=== PATIENT | female | born 2000 | race Caucasian/White ===

== ENCOUNTER 2021-03-30 09:51 | Inpatient (IN) ==
--- NOTE | 2021-03-30 11:28 | Emergency Department Note ---
Impression & Plan Mood disorder ED Provider Note INFORMANT: Patient ED PROVIDER(S): Jose Callahan MD CHIEF COMPLAINT: Depression PLAN: Disposition: Admitted Condition: Good Outpatient prescription management: none Referral: None MEDICAL DECISION MAKING: Patient presented with complaints of depression and by history was severely depressed. Her physical examination did not reveal any concerning medical pathology. Laboratory testing was unremarkable. Patient was evaluated by the ER psychiatric rn case management. Consultation was placed with [address] [facility]. The patient was evaluated in the ER. She was accepted for voluntary admission. Triage Nursing notes reviewed and agree them. Vital Signs: reviewed and remarkable for no significant abnormalities Differential diagnosis: Mood disorder, infection, hypoglycemia, electrolyte abnormalities, cardiac sources, intracerebral event, toxicologic, trauma, neurologic, as well as other pathologies. Diagnostics interpreted by me: ECG: none Cardiac Monitoring: none Imaging studies: Deferred HPI: The patient is a 21 year old female who presents to the Emergency Room with complaints of depression. This started a few months ago and is worsening over the last few weeks. The patient also notes the following associated symptoms, feeling depressed, anxious, poor sleep, lack of appetite, no energy, no concentration. Patient also notes vague thoughts of SI but denies any HI. No plan. The patient has relieving factors. Current pain is rated as 0/10. Patient denies any recent illness. She notes stressor is from 2 recent miscarriages. Pt denies LOC, headache, fevers, chills, diaphoresis, visual changes, neck pain, chest pain, breathing difficulties, nausea, vomiting, abdominal pain, back pain, melena, hematochezia, urinary symptoms, numbness, weakness, lymphadenopathy, rash, or other complaints. ROS: See above HPI for pertinent positives & negatives. A total of 10 systems reviewed and were otherwise negative. 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 Oropharynx unremarkable. EYES: Normal conjunctiva. Sclera non-icteric. Pupils equal and round. EOMI. NECK: Inspection normal. Non-tender. Supple. No nuchal rigidity. FROM. No masses. RESPIRATORY: Clear to auscultation. No wheezes. No rales. Normal respiratory effort. CARDIAC: Normal rate. Normal rhythm. No murmurs. No rubs. Extremities warm and well perfused. Pulses equal. No JVD. GI: Soft, non-distended. No tenderness to palpation. No rebound or guarding. No masses. RECTAL: Deferred. MUSCULOSKELETAL: Atraumatic. Chest examination reveals no tenderness. The back is symmetrical on inspection without obvious abnormality. There is no CVA tenderness to palpation. No joint edema. LOWER EXTREMITIES: Calves are equal size bilaterally and non-tender. No edema. No discoloration. NEURO: Normal sensorium. No sensory or motor deficits noted. Cranial nerves II through XII intact. No drift. SKIN: No rash or jaundice noted. PSYCH: Vague SI, no HI, depressed mood and flat affect. Jose Callahan MD Past Med/Surg History Medical History Concussion Surgical History History of cholecystectomy 2019 Family History Other No significant family history Social History Smoking Status: Never smoker Preferred Language: Estonian Communication Ability: Effective Storeroom Attendant Required: No Beliefs That Will Affect Care: None marital status: Single Feels Safe at Home: Yes Assistive Devices: None Allergies Allergies Allergy/AdvReac Type Severity Reaction Status Date / Time Pork/Porcine Containing Allergy Intermediate Anaphylaxis Unverified 03/30/21 17:24 Products Beef Containing Products Allergy Anaphylaxis Unverified 03/30/21 17:23 No Known Drug Allergies Allergy . Verified 03/30/21 12:27 Home Meds Home Medications Medication Instructions Recorded Confirmed levonorgestrel 0.15 mg-ethinyl 1 tab PO DAILY 03/30/21 03/30/21 estradiol 0.03 mg tablet (Altavera (28)) Results & Data (ED) Vital Signs Vital Signs - 24 hr 03/30/21 10:09 03/30/21 12:35 Temperature 36.9 C Temperature Source Oral Pulse Rate 97 H Pulse Rate [Finger] 85 Respiratory Rate 17 18 Blood Pressure 162/96 H Blood Pressure [Right Arm] 136/81 Blood Pressure Mean 118 Blood Pressure Mean [Right Arm] 99 Pulse Oximetry 97 99 Oxygen Delivery Method Room Air Room Air Sepsis Recent Fever Within 48 Hours No Sepsis New/Unexplained Change in Mental Status N/A Sepsis Action Taken by Nursing No Action Required Laboratory Data Result diagrams: 03/30/21 11:40 03/30/21 11:40 Lab Results 03/30/21 03/30/21 03/30/21 Range/Units 11:40 11:40 11:40 WBC 6.95 (4.8-10.8) K/uL RBC 4.65 (4.2-5.4) M/uL Hgb 14.3 (12.0-16.0) g/dL Hct 41.9 (37-47) % MCV 90.1 (80-100) fL MCH 30.8 (25-34) pg MCHC 34.1 (32-36) g/dL RDW Std Deviation 45.0 (36.4-46.3) fL RDW Coeff of Elizabeth 13.6 (11.5-14.5) % Plt Count 360 (130-400) K/uL MPV 10.6 H (7.4-10.4) fL Immature Gran % (Auto) 0.1 % Neut % (Auto) 70.8 % Lymph % (Auto) 21.0 % [place] % (Auto) 7.2 % Eos % (Auto) 0.6 % Baso % (Auto) 0.3 % Neut # (Auto) 4.92 (1.4-6.5) K/uL Lymph # (Auto) 1.46 (1.2-3.4) K/uL [place] # (Auto) 0.50 (0.11-0.59) K/uL Eos # (Auto) 0.04 (0-0.5) K/uL Baso # (Auto) 0.02 (0-0.2) K/uL Immature Gran # (Auto) 0.01 (0.00-0.02) K/uL Sodium 139 (136-145) mmol/L Potassium 3.8 (3.5-5.1) mmol/L Chloride 107 (98-107) mmol/L Carbon Dioxide 25 (21-32) mmol/L Anion Gap 6.0 (3-11) BUN 11 (7-18) mg/dl Creatinine 0.81 (0.6-1.2) mg/dl Est Cr Clr Drug Dosing 122.1 ml/min Est GFR ( Amer) 120.3 ml/min Est GFR (Non-Af Amer) 103.8 ml/min BUN/Creatinine Ratio 12.9 (10-20) Glucose 102 H (70-99) mg/dl Calcium 9.1 (8.5-10.1) mg/dl Total Bilirubin 0.5 (0.2-1) mg/dl AST 14 L (15-37) U/L ALT 21 (12-78) U/L Alkaline Phosphatase 77 (45-117) U/L Total Protein 8.6 H (6.4-8.2) gm/dl Albumin 4.3 (3.4-5.0) gm/dl Globulin 4.3 H (2.5-4.0) gm/dl Albumin/Globulin Ratio 1.0 (0.9-2) TSH 1.070 (0.300-4.500) uIu/ml Urine Color Urine Appearance (Clear) Urine pH (4.5-7.5) Ur Specific [place] (1.000-1.030) Urine Protein (Negative) Urine Glucose (UA) (Negative) Urine Ketones (Negative) Urine Blood (Negative) Urine Nitrite (Negative) Urine Bilirubin (Negative) Urine Urobilinogen (Negative) Ur Leukocyte Esterase (Negative) Urine WBC (Auto) (0-5) /hpf Urine RBC (Auto) (0-4) /hpf U Hyaline Cast (Auto) (0-5) /lpf U Epithel Cells (Auto) (0-5) /lpf Urine Bacteria (Auto) (Negative) POC Ur Test (NEG) Salicylates < 1.7 L (2.8-20) mg/dl Urine Opiates Screen (Neg) Ur Methadone, Qual (Neg) Acetaminophen < 2 L (10-30) ug/ml Urine Barbiturates (Neg) Ur Phencyclidine (PCP) (Neg) U Amphetamin/Meth Scrn (Neg) MDMA (Ecstasy) Screen (Neg) U Benzodiazepines Scrn (Neg) Ur Cocaine Metabolite (Neg) U Marijuana (THC) Screen (Neg) Ethyl Alcohol mg/dL (0-3) mg/dl COVID-19 Eval Order SARS-CoV-2, RNA, NAAT (NEGATIVE) 03/30/21 03/30/21 03/30/21 Range/Units 11:40 11:50 11:50 WBC (4.8-10.8) K/uL RBC (4.2-5.4) M/uL Hgb (12.0-16.0) g/dL Hct (37-47) % MCV (80-100) fL MCH (25-34) pg MCHC (32-36) g/dL RDW Std Deviation (36.4-46.3) fL RDW Coeff of Elizabeth (11.5-14.5) % Plt Count (130-400) K/uL MPV (7.4-10.4) fL Immature Gran % (Auto) % Neut % (Auto) % Lymph % (Auto) % [place] % (Auto) % Eos % (Auto) % Baso % (Auto) % Neut # (Auto) (1.4-6.5) K/uL Lymph # (Auto) (1.2-3.4) K/uL [place] # (Auto) (0.11-0.59) K/uL Eos # (Auto) (0-0.5) K/uL Baso # (Auto) (0-0.2) K/uL Immature Gran # (Auto) (0.00-0.02) K/uL Sodium (136-145) mmol/L Potassium (3.5-5.1) mmol/L Chloride (98-107) mmol/L Carbon Dioxide (21-32) mmol/L Anion Gap (3-11) BUN (7-18) mg/dl Creatinine (0.6-1.2) mg/dl Est Cr Clr Drug Dosing ml/min Est GFR ( Amer) ml/min Est GFR (Non-Af Amer) ml/min BUN/Creatinine Ratio (10-20) Glucose (70-99) mg/dl Calcium (8.5-10.1) mg/dl Total Bilirubin (0.2-1) mg/dl AST (15-37) U/L ALT (12-78) U/L Alkaline Phosphatase (45-117) U/L Total Protein (6.4-8.2) gm/dl Albumin (3.4-5.0) gm/dl Globulin (2.5-4.0) gm/dl Albumin/Globulin Ratio (0.9-2) TSH (0.300-4.500) uIu/ml Urine Color Urine Appearance (Clear) Urine pH (4.5-7.5) Ur Specific [place] (1.000-1.030) Urine Protein (Negative) Urine Glucose (UA) (Negative) Urine Ketones (Negative) Urine Blood (Negative) Urine Nitrite (Negative) Urine Bilirubin (Negative) Urine Urobilinogen (Negative) Ur Leukocyte Esterase (Negative) Urine WBC (Auto) (0-5) /hpf Urine RBC (Auto) (0-4) /hpf U Hyaline Cast (Auto) (0-5) /lpf U Epithel Cells (Auto) (0-5) /lpf Urine Bacteria (Auto) (Negative) POC Ur Test (NEG) Salicylates (2.8-20) mg/dl Urine Opiates Screen (Neg) Ur Methadone, Qual (Neg) Acetaminophen (10-30) ug/ml Urine Barbiturates (Neg) Ur Phencyclidine (PCP) (Neg) U Amphetamin/Meth Scrn (Neg) MDMA (Ecstasy) Screen (Neg) U Benzodiazepines Scrn (Neg) Ur Cocaine Metabolite (Neg) U Marijuana (THC) Screen (Neg) Ethyl Alcohol mg/dL < 3.0 (0-3) mg/dl COVID-19 Eval Order Covid19 IDNow at[facility] SARS-CoV-2, RNA, NAAT NEGATIVE (NEGATIVE) 03/30/21 03/30/21 03/30/21 Range/Units 12:06 12:06 12:26 WBC (4.8-10.8) K/uL RBC (4.2-5.4) M/uL Hgb (12.0-16.0) g/dL Hct (37-47) % MCV (80-100) fL MCH (25-34) pg MCHC (32-36) g/dL RDW Std Deviation (36.4-46.3) fL RDW Coeff of Elizabeth (11.5-14.5) % Plt Count (130-400) K/uL MPV (7.4-10.4) fL Immature Gran % (Auto) % Neut % (Auto) % Lymph % (Auto) % [place] % (Auto) % Eos % (Auto) % Baso % (Auto) % Neut # (Auto) (1.4-6.5) K/uL Lymph # (Auto) (1.2-3.4) K/uL [place] # (Auto) (0.11-0.59) K/uL Eos # (Auto) (0-0.5) K/uL Baso # (Auto) (0-0.2) K/uL Immature Gran # (Auto) (0.00-0.02) K/uL Sodium (136-145) mmol/L Potassium (3.5-5.1) mmol/L Chloride (98-107) mmol/L Carbon Dioxide (21-32) mmol/L Anion Gap (3-11) BUN (7-18) mg/dl Creatinine (0.6-1.2) mg/dl Est Cr Clr Drug Dosing ml/min Est GFR ( Amer) ml/min Est GFR (Non-Af Amer) ml/min BUN/Creatinine Ratio (10-20) Glucose (70-99) mg/dl Calcium (8.5-10.1) mg/dl Total Bilirubin (0.2-1) mg/dl AST (15-37) U/L ALT (12-78) U/L Alkaline Phosphatase (45-117) U/L Total Protein (6.4-8.2) gm/dl Albumin (3.4-5.0) gm/dl Globulin (2.5-4.0) gm/dl Albumin/Globulin Ratio (0.9-2) TSH (0.300-4.500) uIu/ml Urine Color Dark Yellow Urine Appearance Cloudy A (Clear) Urine pH 5.5 (4.5-7.5) Ur Specific [place] 1.035 H (1.000-1.030) Urine Protein Trace H (Negative) Urine Glucose (UA) Negative (Negative) Urine Ketones 3+ H (Negative) Urine Blood Negative (Negative) Urine Nitrite Negative (Negative) Urine Bilirubin 1+ H (Negative) Urine Urobilinogen Negative (Negative) Ur Leukocyte Esterase Negative (Negative) Urine WBC (Auto) 1-5 (0-5) /hpf Urine RBC (Auto) 0-4 (0-4) /hpf U Hyaline Cast (Auto) 1-5 (0-5) /lpf U Epithel Cells (Auto) >30 H (0-5) /lpf Urine Bacteria (Auto) Negative (Negative) POC Ur Test NEG (NEG) Salicylates (2.8-20) mg/dl Urine Opiates Screen Neg (Neg) Ur Methadone, Qual Neg (Neg) Acetaminophen (10-30) ug/ml Urine Barbiturates Neg (Neg) Ur Phencyclidine (PCP) Neg (Neg) U Amphetamin/Meth Scrn Neg (Neg) MDMA (Ecstasy) Screen Neg (Neg) U Benzodiazepines Scrn Neg (Neg) Ur Cocaine Metabolite Neg (Neg) U Marijuana (THC) Screen Neg (Neg) Ethyl Alcohol mg/dL (0-3) mg/dl COVID-19 Eval Order SARS-CoV-2, RNA, NAAT (NEGATIVE) Discharge Plan Visit Data Chief Complaint: Mental Health Evaluation Stated Complaint: UNABLE TO SLEEP FOR WEEK ED Provider: Jose Callahan Discharge Problem: Mood disorder Patient Disposition: Admitted As Inpatient Discharge Instructions Interventions: ED Discharge Assessment Last Done: 03/30/21 14:20
[2021-03-30 11:56] LABS: Basophils # (auto) 0.02 K/uL (0-0.2); Basophils % (auto) 0.3 %; Eosinophils # (auto) 0.04 K/uL (0-0.5); Eosinophils % (auto) 0.6 %; Hematocrit (blood only) 41.9 % (37-47); Hemoglobin 14.3 g/dL (12.0-16.0); Immature Granulocytes # (auto) 0.01 K/uL (0.00-0.02); Immature Granulocytes % (auto) 0.1 %; Lymphocytes # (auto) 1.46 K/uL (1.2-3.4); Mean Corpuscular Hemoglobin 30.8 pg (25-34); Mean Corpuscular Hgb Conc 34.1 g/dL (32-36); Mean Corpuscular Volume 90.1 fL (80-100); Mean Platelet Volume 10.6 fL (7.4-10.4); Monocytes % (auto) 7.2 %; Neutrophils # (auto) 4.92 K/uL (1.4-6.5); Neutrophils % (auto) 70.8 %; Platelet Count 360 K/uL (130-400); RDW Coefficient of Variation 13.6 % (11.5-14.5); Red Blood Count 4.65 M/uL (4.2-5.4); White Blood Count 6.95 K/uL (4.8-10.8)
[2021-03-30 12:19] LABS: Albumin Level 4.3 gm/dl (3.4-5.0); BUN Creatinine Ratio 12.9 (10-20); Calcium 9.1 mg/dl (8.5-10.1); Creatinine Clr Calc Pharmacy 122.1 ml/min; Est GFR (African American) 120.3 ml/min; Est GFR (Non-African American) 103.8 ml/min; Potassium 3.8 mmol/L (3.5-5.1)
[2021-03-30 12:20] LABS: Appearance Urine Cloudy (Clear); Bacteria Urine Automated Negative (Negative); Blood Urine Negative (Negative); Color Urine Dark Yellow; Epithelial Cell Urine Auto >30 /lpf (0-5); Glucose Urine UA Negative (Negative); Ketones Urine 3+ (Negative); Leukocyte Esterase Urine Negative (Negative); Nitrite Urine Negative (Negative); Protein Urine Trace (Negative); RBC Urine Automated 0-4 /hpf (0-4); Specific Gravity Urine 1.035 (1.000-1.030); Urobilinogen Urine Negative (Negative); pH Urine 5.5 (4.5-7.5)
[2021-03-30 12:21] LABS: Bilirubin Urine 1+ (Negative)
[2021-03-30 12:28] LABS: Acetaminophen < 2 ug/ml (10-30)
[2021-03-30 12:29] LABS: Bilirubin,Total 0.5 mg/dl (0.2-1); Globulin 4.3 gm/dl (2.5-4.0); Salicylate < 1.7 mg/dl (2.8-20); Thyroid Stimulating Hormone 1.07 uIu/ml (0.300-4.500); Total Protein 8.6 gm/dl (6.4-8.2)
[2021-03-30 12:43] LABS: Amphetamines+Metham, Urine Neg (Neg); Barbiturates, Urine Neg (Neg); Benzodiazepine, Urine Neg (Neg); Cocaine, Urine Neg (Neg); MDMA (Ecstacy), Urine Neg (Neg); Methadone, Urine Neg (Neg); Opiate, Urine Neg (Neg); Phencyclidine, Urine Neg (Neg)
[2021-03-30] MEDS ORDERED: hydrOXYzine HCl 25 MG TAB PO PRN ×2 (13:56)
[2021-03-30] MEDS ORDERED: BISMUTH SUBSALICYLATE LIQD 236 ML PO PRN (13:56)
[2021-03-30] MEDS ORDERED: SODIUM CHLORIDE 0.65% NA SOLN 45 ML (OCEAN) PRN (13:56)
[2021-03-30] MEDS ORDERED: ALUMINUM/MAGNESIUM SUSP 30 ML UDC PO PRN (13:56)
[2021-03-30] MEDS ORDERED: MAGNESIUM HYDROXIDE SUSP 30 ML UDC PO PRN (13:56)
[2021-03-30] MEDS ORDERED: ACETAMINOPHEN 325 MG TAB PO PRN (13:56)
--- NOTE | 2021-03-30 16:04 | History & Physical ---
Date of Service March 30, 2021 Impression / Recommendations Impression This is a 21-year-old female who presented to the emergency department with depression and suicidal ideation in the context of social stressors and recent loss. Patient will benefit from inpatient hospital stabilization for purposes of safety, stabilization and medication management. Currently on a 201 voluntary hospitalization. Working diagnosis at this time is major depressive disorder without psychotic features. Patient is agreeable to med changes to target the symptoms. We will start with a low-dose Lexapro combined with the benzodiazepine to aid with insomnia and initiation of SSRI. (1) Mood disorder: The patient was admitted to the [facility]) on every 15 minute checks (behavioral with suicide precautions for safety. The patient will participate in group, recreational, and milieu therapies and will be offered additional individual and family sessions as clinically appropriate. 03/30/2021atient will be prescribed 2 mg of lorazepam p.o. nightly, Lexapro 10 mg p.o. every morning Protective Factors Assessment Employed: No (Quit job yesterday due to depression) Psychiatric History Identifying Data VIRGINIA BRADSHAW is a 21-year-old F who currently lives in [place] alone, has no previous psychiatric history, and was admitted on 03/30/21 13:57 on a 201 voluntary commitment for depression with suicidal ideation. Chief Complaint "Mee been so out of sorts recently.". History of Present Illness As per psychiatric case management "Met with patient bedside along with friend, Tashi and Dr. Callahan to complete mental health evaluation. Patient presents sad, flat, tearful at times, but remains cooperative in answering all questions asked of her. Patient reports she has had two miscarriages this year, most recent in January. Patient got in September and was thinking about having an , but everyone was angry and upset about it. Patient then got again in December and had the same thoughts of having an , but then miscarried again. Patient reports worsening depression and difficulties sleeping especially over the past week. Patient reports she has been ignoring her feelings and believes it has all just caught up with me. Patient reports she is feeling very lonely. Patient admits to suicidal ideations, but has never developed a plan. Patient reports she has her first appointment a therapist, Nuzhat Blackman on Sunday. Patient denies being prescribed any psychotropic medications. Patient identifies stressors as recent break up with boyfriend of 1 year, unemployment, financial and health issues-2 miscarriages. Patient reports depressive symptoms as crying, feelings of helpless/hopelessness, lack of motivation and energy, loss of daily functioning, decrease concentration, appetite and sleep. Patient reports manic symptoms as racing thoughts and elevated/expansive mood. Patient describes anxiety as severe with symptoms of shortness, headaches, trembling, restlessness and palpitations. Patient denies any drug or tobacco use, admitting to one drink per night to help with sleep. 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 Patient is voluntary for treatment, prefers [facility]" Upon arrival to the unit patient endorsed the above information is accurate. She went on to dictate that it has been a lot of loss throughout her life including loss of her grandparents around puberty age, and more recently loss of job, loss of her unborn child, loss of boyfriend. She states that when thinking about that she is overwhelmed with racing thoughts and unable to sleep. She is agreeable to medication management to target the symptoms of depression and insomnia. Denies any substance abuse. Denies any legal trouble. Denies any manic or psychotic symptoms. Past Psychiatric History Current Psychiatric Diagnosis: Unknown Describe Attempts in the Past: Denies Allergies Allergy/AdvReac Type Severity Reaction Status Date / Time No Known Drug Allergies Allergy . Verified 03/30/21 12:27 Home Medications Medication Instructions Recorded Confirmed Type levonorgestrel 0.15 mg-ethinyl 1 tab PO DAILY 03/30/21 03/30/21 History estradiol 0.03 mg tablet (Altavera (28)) Family History Family History of: None Alcohol History Hx of Alcohol Use Over the Past 12 Months: Yes (One drink daily to help with sleep) Smoking Use Smoking Status: Never smoker Substance History Hx of Prescription Med Misuse Over the Past 12 Months: No Hx of Over the Counter Med Misuse Over the Past 12 Months: No Hx of Inhalent Misuse Over the Past 12 Months: No Hx of Organic Substance Use Over the Past 12 Months: No Hx of Illegal Substances/Street Drug Use Over Past 12 Months: No Problems as a Result of Past Substance Use: None Identified Personal History Living Arrangements: Apartment Patient History Medical History Concussion Surgical History History of cholecystectomy 2019 Family History Other No significant family history Social History Smoking Status: Never smoker Preferred Language: Italian marital status: Single Feels Safe at Home: Yes Review of Systems Review of Systems: All systems reviewed & are unremarkable except as noted in HPI & below Physical Exam Psychiatric: Orientation: alert and oriented x 3 Apperance: appropriately dressed and appropriately groomed Eye Contact: good eye contact Motor Behavior: no abnormal motor movements Speech: normal rate/rhythm/volume of speech Affect: + depressed affect, + anxious affect and + tearful affect Mood: + depressed mood, + anxious mood and + dysphoric mood Thought Process: linear/logical thought process Thought Content: + preoccupation, + cognitive distortions, + hopelessness, + worthlessness, + guilt and + self deprecation Suicidal Thoughts: denies suicidal plan; + reports suicidal thoughts Homicidal Thoughts: denies homicidal thoughts and denies homicidal plan Hallucinations: no auditory hallucinations and no visual hallucinations Cognition: recent memory grossly intact Estimated Intelligence: consistent with education level Insight: + fair insight Judgement: + impaired judgement Vital Signs (Past 24 Hours): Last Vital Signs Temp 36.9 C 03/30/21 10:09 Pulse 85 03/30/21 12:35 Resp 18 03/30/21 12:35 BP 136/81 03/30/21 12:35 Pulse Ox 99 03/30/21 12:35 Results & Data ([facility]) Laboratory Results Laboratory Results - last 24 hr 03/30/21 03/30/21 03/30/21 11:40 11:40 11:40 WBC 6.95 RBC 4.65 Hgb 14.3 Hct 41.9 MCV 90.1 MCH 30.8 MCHC 34.1 RDW Std Deviation 45.0 RDW Coeff of Elizabeth 13.6 Plt Count 360 MPV 10.6 H Immature Gran % (Auto) 0.1 Neut % (Auto) 70.8 Lymph % (Auto) 21.0 [place] % (Auto) 7.2 Eos % (Auto) 0.6 Baso % (Auto) 0.3 Neut # (Auto) 4.92 Lymph # (Auto) 1.46 [place] # (Auto) 0.50 Eos # (Auto) 0.04 Baso # (Auto) 0.02 Immature Gran # (Auto) 0.01 Sodium 139 Potassium 3.8 Chloride 107 Carbon Dioxide 25 Anion Gap 6.0 BUN 11 Creatinine 0.81 Est Cr Clr Drug Dosing 122.1 Est GFR ( Amer) 120.3 Est GFR (Non-Af Amer) 103.8 BUN/Creatinine Ratio 12.9 Glucose 102 H Calcium 9.1 Total Bilirubin 0.5 AST 14 L ALT 21 Alkaline Phosphatase 77 Total Protein 8.6 H Albumin 4.3 Globulin 4.3 H Albumin/Globulin Ratio 1.0 TSH 1.070 Urine Color Urine Appearance Urine pH Ur Specific [place] Urine Protein Urine Glucose (UA) Urine Ketones Urine Blood Urine Nitrite Urine Bilirubin Urine Urobilinogen Ur Leukocyte Esterase Urine WBC (Auto) Urine RBC (Auto) U Hyaline Cast (Auto) U Epithel Cells (Auto) Urine Bacteria (Auto) POC Ur Test Salicylates < 1.7 L Urine Opiates Screen Ur Methadone, Qual Acetaminophen < 2 L Urine Barbiturates Ur Phencyclidine (PCP) U Amphetamin/Meth Scrn MDMA (Ecstasy) Screen U Benzodiazepines Scrn Ur Cocaine Metabolite U Marijuana (THC) Screen Ethyl Alcohol mg/dL COVID-19 Eval Order SARS-CoV-2, RNA, NAAT 03/30/21 03/30/21 03/30/21 11:40 11:50 11:50 WBC RBC Hgb Hct MCV MCH MCHC RDW Std Deviation RDW Coeff of Elizabeth Plt Count MPV Immature Gran % (Auto) Neut % (Auto) Lymph % (Auto) [place] % (Auto) Eos % (Auto) Baso % (Auto) Neut # (Auto) Lymph # (Auto) [place] # (Auto) Eos # (Auto) Baso # (Auto) Immature Gran # (Auto) Sodium Potassium Chloride Carbon Dioxide Anion Gap BUN Creatinine Est Cr Clr Drug Dosing Est GFR ( Amer) Est GFR (Non-Af Amer) BUN/Creatinine Ratio Glucose Calcium Total Bilirubin AST ALT Alkaline Phosphatase Total Protein Albumin Globulin Albumin/Globulin Ratio TSH Urine Color Urine Appearance Urine pH Ur Specific [place] Urine Protein Urine Glucose (UA) Urine Ketones Urine Blood Urine Nitrite Urine Bilirubin Urine Urobilinogen Ur Leukocyte Esterase Urine WBC (Auto) Urine RBC (Auto) U Hyaline Cast (Auto) U Epithel Cells (Auto) Urine Bacteria (Auto) POC Ur Test Salicylates Urine Opiates Screen Ur Methadone, Qual Acetaminophen Urine Barbiturates Ur Phencyclidine (PCP) U Amphetamin/Meth Scrn MDMA (Ecstasy) Screen U Benzodiazepines Scrn Ur Cocaine Metabolite U Marijuana (THC) Screen Ethyl Alcohol mg/dL < 3.0 COVID-19 Eval Order Covid19 [facility]Now [facility] SARS-CoV-2, RNA, NAAT NEGATIVE 03/30/21 03/30/21 03/30/21 12:06 12:06 12:26 WBC RBC Hgb Hct MCV MCH MCHC RDW Std Deviation RDW Coeff of Elizabeth Plt Count MPV Immature Gran % (Auto) Neut % (Auto) Lymph % (Auto) [place] % (Auto) Eos % (Auto) Baso % (Auto) Neut # (Auto) Lymph # (Auto) [place] # (Auto) Eos # (Auto) Baso # (Auto) Immature Gran # (Auto) Sodium Potassium Chloride Carbon Dioxide Anion Gap BUN Creatinine Est Cr Clr Drug Dosing Est GFR ( Amer) Est GFR (Non-Af Amer) BUN/Creatinine Ratio Glucose Calcium Total Bilirubin AST ALT Alkaline Phosphatase Total Protein Albumin Globulin Albumin/Globulin Ratio TSH Urine Color Dark Yellow Urine Appearance Cloudy A Urine pH 5.5 Ur Specific [place] 1.035 H Urine Protein Trace H Urine Glucose (UA) Negative Urine Ketones 3+ H Urine Blood Negative Urine Nitrite Negative Urine Bilirubin 1+ H Urine Urobilinogen Negative Ur Leukocyte Esterase Negative Urine WBC (Auto) 1-5 Urine RBC (Auto) 0-4 U Hyaline Cast (Auto) 1-5 U Epithel Cells (Auto) >30 H Urine Bacteria (Auto) Negative POC Ur Test NEG Salicylates Urine Opiates Screen Neg Ur Methadone, Qual Neg Acetaminophen Urine Barbiturates Neg Ur Phencyclidine (PCP) Neg U Amphetamin/Meth Scrn Neg MDMA (Ecstasy) Screen Neg U Benzodiazepines Scrn Neg Ur Cocaine Metabolite Neg U Marijuana (THC) Screen Neg Ethyl Alcohol mg/dL COVID-19 Eval Order SARS-CoV-2, RNA, NAAT Current Inpatient Medications Current Inpatient Medications: Current Inpatient Medications Acetaminophen (Acetaminophen 325 Mg Tab) 650 mg PO Q4H PRN PRN Reason: Headache or Minor Fever Stop: 04/29/21 13:55 Al Hydrox/Mg Hydrox/Simethicone (Aluminum/Magnesium Susp 30 Ml Udc) 30 ml PO Q4H PRN PRN Reason: GI Upset Stop: 04/29/21 13:55 Bismuth Subsalicylate (Bismuth Subsalicylate Liqd 236 Ml) 15 ml PO PRN PRN PRN Reason: Loose Stool Stop: 04/29/21 13:55 Escitalopram Oxalate (Escitalopram Oxalate 10 Mg Tab) 10 mg PO QAM MARIBELL Stop: 04/30/21 08:59 Hydroxyzine HCl (Hydroxyzine Hcl 25 Mg Tab) 25 mg PO Q4H PRN PRN Reason: Anxiety Stop: 04/29/21 13:55 Lorazepam (Lorazepam 1 Mg Tab) 2 mg PO HS MARIBELL Stop: 04/29/21 21:59 Magnesium Hydroxide (Magnesium Hydroxide Susp 30 Ml Udc) 30 ml PO DAILY PRN PRN Reason: Constipation Stop: 04/29/21 13:55 Non-Formulary Medication (Levonorgestrel-Ethinyl Estrad [Altavera (28)]) 1 tab PO DAILY MARIBELL Stop: 04/30/21 08:59 Sodium Chloride (Sodium Chloride 0.65% Na Soln 45 Ml ([place])) 1 - 2 sprays NA PRN PRN PRN Reason: Nasal Dryness/Congestion Stop: 04/29/21 13:55
[2021-03-30] MEDS ORDERED: LORazepam 1 MG TAB PO SCH (22:00)
[2021-03-31] MEDS: ESCITALOPRAM OXALATE 10 MG TAB PO SCH (09:09)
[2021-03-31] MEDS ORDERED: LORazepam 1 MG TAB PO PRN (14:42)
--- NOTE | 2021-03-31 14:55 | Psychiatric Progress Note ---
Date of Service March 31, 2021 Impression / Recommendations Impression This is a 21-year-old female who presented to the emergency department with depression and suicidal ideation in the context of social stressors and recent loss. Patient will benefit from inpatient hospital stabilization for purposes of safety, stabilization and medication management. Currently on a 201 voluntary hospitalization. Working diagnosis at this time is major depressive disorder without psychotic features. Patient is agreeable to med changes to target the symptoms. We will start with a low-dose Lexapro combined with the benzodiazepine to aid with insomnia and initiation of SSRI. (1) Mood disorder: The patient was admitted to the [facility] ([facility] mental [facility] unit) on every 15 minute checks (behavioral with suicide precautions for safety. The patient will participate in group, recreational, and milieu therapies and will be offered additional individual and family sessions as clinically appropriate. 1lorazepam dosage will be lowered to 1 mg as well as making the dose as needed. We will continue Lexapro at 10 mg. Patient with much improvement will consider discharge as early as tomorrow 1patient will be prescribed 2 mg of lorazepam p.o. nightly, Lexapro 10 mg p.o. every morning Protective Factors Assessment Employed: No (Quit job yesterday due to depression) Interval History Chief Complaint "I'm feeling so much better, I think that sleep was so helpful". Review of Systems Sleep Information Total Hours of Sleep: 6.25 Meal Information Percent Meal Consumed - Breakfast: 20 Percent Meal Consumed - Lunch: 100 Percent Meal Consumed - Dinner: 90 Subjective Subjective Patient seen, chart reviewed and case discussed with treatment team, nursing and social work. Patient reports a good night of sleep and fair appetite. No side effects reported or observed. Regarding mood, patient reports some improvement which they attribute to the medications as well as the therapy they have received on the unit. Patient is reporting that the Ativan medication she took last night was greatly helpful for sleep. She states that after having a good night's rest she is feeling much better with resolution of her poor mood. Patient was encouraged that while sleep was helpful, she was still benefit from therapy services as well as medication to which she was in agreement. She denies any suicidal thoughts. Denying depressed mood currently. Looking forward to family meeting tomorrow and potential discharge. I spent 30 minutes with the patient, 50% of which was dedicated to counselling and coordination of care. Physical Exam Psychiatric Orientation: alert and oriented x 3 Apperance: appropriately dressed and appropriately groomed Eye Contact: good eye contact Motor Behavior: no abnormal motor movements Speech: normal rate/rhythm/volume of speech Affect: + depressed affect, + anxious affect and + tearful affect Mood: + depressed mood, + anxious mood and + dysphoric mood Thought Process: linear/logical thought process Thought Content: + preoccupation, + cognitive distortions, + hopelessness, + worthlessness, + guilt and + self deprecation Suicidal Thoughts: denies suicidal plan; + reports suicidal thoughts Homicidal Thoughts: denies homicidal thoughts and denies homicidal plan Hallucinations: no auditory hallucinations and no visual hallucinations Cognition: recent memory grossly intact Estimated Intelligence: consistent with education level Insight: + fair insight Judgement: + impaired judgement Vital Signs (Past 24 Hours) Last Vital Signs Temp 36.8 C 03/31/21 06:00 Pulse 96 H 03/31/21 06:17 Resp 17 03/31/21 06:00 BP 103/71 03/31/21 06:17 Pulse Ox 99 03/30/21 12:35 Results & Data ([facility]) Current Inpatient Medications Current Inpatient Medications: Current Inpatient Medications Acetaminophen (Acetaminophen 325 Mg Tab) 650 mg PO Q4H PRN PRN Reason: Headache or Minor Fever Stop: 04/29/21 13:55 Al Hydrox/Mg Hydrox/Simethicone (Aluminum/Magnesium Susp 30 Ml Udc) 30 ml PO Q4H PRN PRN Reason: GI Upset Stop: 04/29/21 13:55 Bismuth Subsalicylate (Bismuth Subsalicylate Liqd 236 Ml) 15 ml PO PRN PRN PRN Reason: Loose Stool Stop: 04/29/21 13:55 Escitalopram Oxalate (Escitalopram Oxalate 10 Mg Tab) 10 mg PO QAM MARIBELL Stop: 04/30/21 08:59 Last Admin: 03/31/21 09:09 Dose: 10 mg Documented by: Hydroxyzine HCl (Hydroxyzine Hcl 25 Mg Tab) 25 mg PO Q4H PRN PRN Reason: Anxiety Stop: 04/29/21 13:55 Lorazepam (Lorazepam 1 Mg Tab) 1 mg PO HS PRN PRN Reason: Insomnia Stop: 04/30/21 21:59 Magnesium Hydroxide (Magnesium Hydroxide Susp 30 Ml Udc) 30 ml PO DAILY PRN PRN Reason: Constipation Stop: 04/29/21 13:55 Miscellaneous (* Control*Order Awaiting Action) 1 ea N/A QS MARIBELL Stop: 04/30/21 00:00 Last Admin: 03/31/21 09:10 Dose: Not Given Documented by: Sodium Chloride (Sodium Chloride 0.65% Na Soln 45 Ml ([place])) 1 - 2 sprays NA PRN PRN PRN Reason: Nasal Dryness/Congestion Stop: 04/29/21 13:55 Mental Health & Subst Abuse Tx Therapist Name of Therapist: [facility]'s Date of Therapist Appointment: 04/08/21 Time of Therapist Appointment: 10:30am Therapy Appointment Comment: [address], [address], [place] [address] Post Discharge Appointments Primary Care Physician Name Of Family Doctor: Jose Richards [facility] Date of Appointment with PCP: 04/14/21 Time of Appointment with PCP: 1pm Provider Appointment Comment: [address], [place] [address] Specialist Name of Specialist: [facility] Gynocology Phone Number for Specialist: [phone] Date of Appointment with Specialist: 05/31/21 Time of Appointment with Specialist: 2pm Specialty Appointment Comment: [address], [place] [address]
[2021-04-01] MEDS: ESCITALOPRAM OXALATE 10 MG TAB PO SCH (09:02)
--- NOTE | 2021-04-01 14:25 | Discharge Summary ---
Date of Service April 01, 2021 History of Present Illness As per psychiatric case management "Met with patient bedside along with friend, Tashi and Dr. Callahan to complete mental health evaluation. Patient presents sad, flat, tearful at times, but remains cooperative in answering all questions asked of her. Patient reports she has had two miscarriages this year, most recent in January. Patient got in September and was thinking about having an , but everyone was angry and upset about it. Patient then got again in December and had the same thoughts of having an , but then miscarried again. Patient reports worsening depression and difficulties sleeping especially over the past week. Patient reports she has been ignoring her feelings and believes it has all just caught up with me. Patient reports she is feeling very lonely. Patient admits to suicidal ideations, but has never developed a plan. Patient reports she has her first appointment a therapist, Nuzhat Blackman on Sunday. Patient denies being prescribed any psychotropic medications. Patient identifies stressors as recent break up with boyfriend of 1 year, unemployment, financial and health issues-2 miscarriages. Patient reports depressive symptoms as crying, feelings of helpless/hopelessness, lack of motivation and energy, loss of daily functioning, decrease concentration, appetite and sleep. Patient reports manic symptoms as racing thoughts and elevated/expansive mood. Patient describes anxiety as severe with symptoms of shortness, headaches, trembling, restlessness and palpitations. Patient denies any drug or tobacco use, admitting to one drink per night to help with sleep. 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 Patient is voluntary for treatment, prefers [facility]" Upon arrival to the unit patient endorsed the above information is accurate. She went on to dictate that it has been a lot of loss throughout her life including loss of her grandparents around puberty age, and more recently loss of job, loss of her unborn child, loss of boyfriend. She states that when thinking about that she is overwhelmed with racing thoughts and unable to sleep. She is agreeable to medication management to target the symptoms of depression and insomnia. Denies any substance abuse. Denies any legal trouble. Denies any m anic or psychotic symptoms. Physical Exam Psychiatric Orientation: alert and oriented x 3 Apperance: appropriately dressed and appropriately groomed Eye Contact: good eye contact Motor Behavior: no abnormal motor movements Speech: normal rate/rhythm/volume of speech Affect: + depressed affect, + anxious affect and + tearful affect Mood: + depressed mood, + anxious mood and + dysphoric mood Thought Process: linear/logical thought process Thought Content: + preoccupation, + cognitive distortions, + hopelessness, + wor thlessness, + guilt and + self deprecation Suicidal Thoughts: denies suicidal plan; + reports suicidal thoughts Homicidal Thoughts: denies homicidal thoughts and denies homicidal plan Hallucinations: no auditory hallucinations and no visual hallucinations Cognition: recent memory grossly intact Estimated Intelligence: consistent with education level Insight: + fair insight Judgement: + impaired judgement Vital Signs (Past 24 Hours) Last Vital Signs Temp 36.7 C 04/01/21 10:38 Pulse 96 H 04/01/21 10:38 Resp 16 04/01/21 10:38 BP 116/77 04/01/21 10:38 Pulse Ox 99 04/01/21 10:38 Principal Diagnosis Major depressive Disorder Psychiatric Data See daily stay summary. In short, safety was maintained, and the patient was cooperative with care. Medication changes included initiation of 10mg Lexapro medication and they tolerated this well. Patient did also complain of some panic at night as well as some insomnia which was well treated with low-dose Ativan. A family session was held and safety plan was completed prior to discharge. Day of Discharge Assessment Today the patient voices readiness for discharge. They note improvement in mood and deny thoughts to harm self or others. Thoughts remain organized and they are improved from admission. There is no evidence of psychosis. They agree to take medications as prescribed and keep follow-up appointments. They are stable for discharge to outpatient level of care. Advance Directives Advance Directives Information Provided: Yes Advance Directives: No Mental Health Advance Directive: No Advance Directives on File: No Living Will: No Power of Tar Distributor Operator: No Advance Directives Reason:: Declines as Mental Health Visit. Protective Factors Assessment Employed: No (Quit job yesterday due to depression) Discharge Data Lab Results 03/30/21 03/30/21 03/30/21 11:40 11:40 11:40 WBC 6.95 RBC 4.65 Hgb 14.3 Hct 41.9 MCV 90.1 MCH 30.8 MCHC 34.1 RDW Std Deviation 45.0 RDW Coeff of Elizabeth 13.6 Plt Count 360 MPV 10.6 H Immature Gran % (Auto) 0.1 Neut % (Auto) 70.8 Lymph % (Auto) 21.0 Swisher % (Auto) 7.2 Eos % (Auto) 0.6 Baso % (Auto) 0.3 Neut # (Auto) 4.92 Lymph # (Auto) 1.46 Swisher # (Auto) 0.50 Eos # (Auto) 0.04 Baso # (Auto) 0.02 Immature Gran # (Auto) 0.01 Sodium 139 Potassium 3.8 Chloride 107 Carbon Dioxide 25 Anion Gap 6.0 BUN 11 Creatinine 0.81 Est Cr Clr Drug Dosing 122.1 Est GFR ( Amer) 120.3 Est GFR (Non-Af Amer) 103.8 BUN/Creatinine Ratio 12.9 Glucose 102 H Calcium 9.1 Total Bilirubin 0.5 AST 14 L ALT 21 Alkaline Phosphatase 77 Total Protein 8.6 H Albumin 4.3 Globulin 4.3 H Albumin/Globulin Ratio 1.0 TSH 1.070 Urine Color Urine Appearance Urine pH Ur Specific [place] Urine Protein Urine Glucose (UA) Urine Ketones Urine Blood Urine Nitrite Urine Bilirubin Urine Urobilinogen Ur Leukocyte Esterase Urine WBC (Auto) Urine RBC (Auto) U Hyaline Cast (Auto) U Epithel Cells (Auto) Urine Bacteria (Auto) POC Ur Test Salicylates < 1.7 L Urine Opiates Screen Ur Methadone, Qual Acetaminophen < 2 L Urine Barbiturates Ur Phencyclidine (PCP) U Amphetamin/Meth Scrn MDMA (Ecstasy) Screen U Benzodiazepines Scrn Ur Cocaine Metabolite U Marijuana (THC) Screen Ethyl Alcohol mg/dL COVID-19 Eval Order SARS-CoV-2, RNA, NAAT 03/30/21 03/30/21 03/30/21 11:40 11:50 11:50 WBC RBC Hgb Hct MCV MCH MCHC RDW Std Deviation RDW Coeff of Elizabeth Plt Count MPV Immature Gran % (Auto) Neut % (Auto) Lymph % (Auto) Swisher % (Auto) Eos % (Auto) Baso % (Auto) Neut # (Auto) Lymph # (Auto) Swisher # (Auto) Eos # (Auto) Baso # (Auto) Immature Gran # (Auto) Sodium Potassium Chloride Carbon Dioxide Anion Gap BUN Creatinine Est Cr Clr Drug Dosing Est GFR ( Amer) Est GFR (Non-Af Amer) BUN/Creatinine Ratio Glucose Calcium Total Bilirubin AST ALT Alkaline Phosphatase Total Protein Albumin Globulin Albumin/Globulin Ratio TSH Urine Color Urine Appearance Urine pH Ur Specific [place] Urine Protein Urine Glucose (UA) Urine Ketones Urine Blood Urine Nitrite Urine Bilirubin Urine Urobilinogen Ur Leukocyte Esterase Urine WBC (Auto) Urine RBC (Auto) U Hyaline Cast (Auto) U Epithel Cells (Auto) Urine Bacteria (Auto) POC Ur Test Salicylates Urine Opiates Screen Ur Methadone, Qual Acetaminophen Urine Barbiturates Ur Phencyclidine (PCP) U Amphetamin/Meth Scrn MDMA (Ecstasy) Screen U Benzodiazepines Scrn Ur Cocaine Metabolite U Marijuana (THC) Screen Ethyl Alcohol mg/dL < 3.0 COVID-19 Eval [facility] SARS-CoV-2, RNA, NAAT NEGATIVE 03/30/21 03/30/21 03/30/21 12:06 12:06 12:26 WBC RBC Hgb Hct MCV MCH MCHC RDW Std Deviation RDW Coeff of Elizabeth Plt Count MPV Immature Gran % (Auto) Neut % (Auto) Lymph % (Auto) Swisher % (Auto) Eos % (Auto) Baso % (Auto) Neut # (Auto) Lymph # (Auto) Swisher # (Auto) Eos # (Auto) Baso # (Auto) Immature Gran # (Auto) Sodium Potassium Chloride Carbon Dioxide Anion Gap BUN Creatinine Est Cr Clr Drug Dosing Est GFR ( Amer) Est GFR (Non-Af Amer) BUN/Creatinine Ratio Glucose Calcium Total Bilirubin AST ALT Alkaline Phosphatase Total Protein Albumin Globulin Albumin/Globulin Ratio TSH Urine Color Dark Yellow Urine Appearance Cloudy A Urine pH 5.5 Ur Specific [place] 1.035 H Urine Protein Trace H Urine Glucose (UA) Negative Urine Ketones 3+ H Urine Blood Negative Urine Nitrite Negative Urine Bilirubin 1+ H Urine Urobilinogen Negative Ur Leukocyte Esterase Negative Urine WBC (Auto) 1-5 Urine RBC (Auto) 0-4 U Hyaline Cast (Auto) 1-5 U Epithel Cells (Auto) >30 H Urine Bacteria (Auto) Negative POC Ur Test NEG Salicylates Urine Opiates Screen Neg Ur Methadone, Qual Neg Acetaminophen Urine Barbiturates Neg Ur Phencyclidine (PCP) Neg U Amphetamin/Meth Scrn Neg MDMA (Ecstasy) Screen Neg U Benzodiazepines Scrn Neg Ur Cocaine Metabolite Neg U Marijuana (THC) Screen Neg Ethyl Alcohol mg/dL COVID-19 Eval Order SARS-CoV-2, RNA, NAAT Hospital Course (1) Mood disorder: The patient was admitted to the [facility] ([facility] mental health unit) on every 15 minute checks (behavioral with suicide precautions for safety. The patient will participate in group, recreational, and milieu therapies and will be offered additional individual and family sessions as clinically appropriate. 1lorazepam dosage will be lowered to 1 mg as well as making the dose as needed. We will continue Lexapro at 10 mg. Patient with much improvement will consider discharge as early as tomorrow 1patient will be prescribed 2 mg of lorazepam p.o. nightly, Lexapro 10 mg p.o. every morning Mental Health & Subst Abuse Tx Therapist Name of Therapist: [facility] The[facility]'s Date of Therapist Appointment: 04/08/21 Time of Therapist Appointment: 10:30am Therapy Appointment Comment: [address], [address], [place] [address] Therapist Release of Information: Obtained, Reviewed and Signed Post Discharge Appointments Primary Care Physician Name Of Family Doctor: Jose Richards Primary Care Date of Appointment with PCP: 04/14/21 Time of Appointment with PCP: 1pm Provider Appointment Comment: [address], [place] [address] Primary Care Release of Information: Obtained, Reviewed and Signed Specialist Name of Specialist: [facility] Gynecology Phone Number for Specialist: [phone] Date of Appointment with Specialist: 05/31/21 Time of Appointment with Specialist: 2pm Specialty Appointment Comment: [address], [place] [address] Specialist Release of Information: Obtained, Reviewed and Signed Contact Information Discharge Discharge Address[address] [place] [address] Discharge Plan Discharge Items Patient Disposition: Home - Self-Care Reason For Visit: MDD Discharge Diagnosis: Major Depressive Disorder Activity: Resume your previous activity Non-emergency contact: Primary Care Provider and Therapist Call non-emergency contact if: you have any medication questions and your symptoms worsen Follow-up/Referrals: Jose Richards, [Primary Care Provider] - Diet: Regular Addtl Attending Provider Instructions: SPECIAL CARE INSTRUCTIONS: 1. Follow through with your scheduled aftercare appointments. If unable to keep an appointment, please call to reschedule. 2. Take your medication only as prescribed. Medication should not be changed or stopped without the approval of your doctor. In the event of worsening symptoms or concerns about side effects, contact your doctor immediately. 3. Utilize new healthy coping skills, anger management skills, and stress management skills learned during your hospitalization. Journal feelings and process them with a support person. Identify stressors or situations that may result in relapse, deterioration or inappropriate behaviors and develop a plan to deal with those issues. 4. If your coping skills are ineffective and you are in crisis, contact your outpatient providers for direction. If unable to reach your providers, please call the [facility] CRISIS LINE AT , go to the [facility] walk-in center at [address], [place], or go to the closest Emergency Room. 5. Avoid alcohol and un-prescribed drugs. 6. You have been provided with the Mental Health Advance Directives Pamphlet for your review. AFTERCARE APPOINTMENTS: * Please call your insurance company prior to your scheduled appointment to confirm your aftercare providers are covered. Take your insurance information to your appointments. WHO TO CALL AND WHEN: Medical Emergencies: For questions or emergencies related to your hospital stay, please contact the Inpatient Behavioral Health Unit at [phone]. A lan/wan engineer is on-call 12/03 for the Behavioral Health Unit for emergencies At any time you feel your situation is an emergency, you may also call 911 immediately. Pending Studies at Discharge: No Stand-Alone Forms: My [employer], Smoking Cessation Medications and DC Order Prescriptions: New escitalopram oxalate 10 mg Tablet 10 mg PO QAM 30 Days Qty: 30 RF: 0 lorazepam 0.5 mg tablet 0.5 mg PO HS PRN (Reason: sleep) Qty: 30 RF: 0 Continued levonorgestrel-ethinyl estrad [Altavera (28)] 0.15-0.03 mg tablet 1 tab PO DAILY RF: 0 Discharge Orders: Discharge Order (Routine); Ordered 04/01/21 Ordered By: Jorge Diana Admission Data Admit Date/Time: 03/30/21 13:57 Attending Provider: Jorge Diana Admit Provider: Jorge Diana Primary Care Provider: Jose Richards Other Interventions: Discharge Summary Assessment (RN) Last Done: 04/01/21 10:38 PSY Interdisciplinary Discharge Planning Last Done: 04/01/21 10:41 Coding Level of Care Code 82776 D/C day mgmt > 30 min Diagnoses Mood disorder F39 Time Spent (min) 35
== END 2021-04-01 11:42 | disposition home or self-care (01) | DRG 881 ==
LOC: ED 09:51 → 3S 13:57
DX: F32.9 Major depressive disorder, single episode, unspecified